=== PATIENT | male | born 1945 | race Two or more races ===

== ENCOUNTER 2024-03-12 15:53 | Emergency (ER) | payer MEDICAID, MEDICARE, OTHER ==
[~2024-03-12] VITALS: Ht 177.8 cm; Wt 103.0 kg
[~2024-03-12 15:53] MED LIST: [UNRECOGNIZED DRUG - REMARK]
[2024-03-12 16:31] VITALS: TEMP 98
[2024-03-12] MEDS ORDERED: KETOROLAC TROMETHAMINE INJ 30 MG/ML VIAL ONE (20:05)
[2024-03-12] MEDS ORDERED: CYCLOBENZAPRINE 10 MG TABLET ONE (20:06)
[2024-03-12] MEDS: CYCLOBENZAPRINE 10 MG TABLET PO ONE (20:10)
[2024-03-12] MEDS: KETOROLAC TROMETHAMINE INJ 30 MG/ML VIAL IM ONE (20:11)
[2024-03-12] MEDS ORDERED: CYCL5TAB PO (20:35)
[2024-03-12 20:59] VITALS: BP 114/71; O2SAT 96
== END 2024-03-12 20:48 | disposition home or self-care (01) ==
LOC: ER 15:58
DX: M25.551 Pain in right hip (principal); M79.604 Pain in right leg; I10 Essential (primary) hypertension; Z87.828 Personal history of other (healed) physical injury and trauma; Z85.46 Personal history of malignant neoplasm of prostate
CPT/HCPCS: 99283; 96372; J1885